=== PATIENT | male | born 1950 | race Caucasian/White ===

== ENCOUNTER 2016-11-20 13:46 | Emergency (ER) | payer MEDICARE ==
[~2016-11-20] VITALS: Ht 170.2 cm; Wt 111.6 kg
--- OUTSIDE RECORDS SUMMARY | ~2016-11-20 | XMS ---
Demographics + + + | Address | [address] | | | [place] [address] | + + + | Preferred Language | Unknown | + + + | Marital Status | Unknown | + + + | Scientologist Affiliation | Unknown | + + + | Race | Unknown | + + + | Ethnic Group | Unknown | + + + Author + + + | Author | [facility] | + + + | Organization | [facility] | + + + | Address | [address] | | | [place] [address] | + + + | Phone | | + + + Care Team Providers + + + + | Care Delivery Consultant Name | Role | Phone | + + + + Unavailable | Unavailable | + + + + PROBLEMS +---------+ + + +--------+ + + | Type | Condition | ICD9-CM | [id number] | Onset | Condition | SNOMED | | | | Code | Code | Dates | Status | Code | +---------+ + + +--------+ + + | Problem | Hyperlipid | | E78.5 | | Active | [id number] | | | emia | | | | | | +---------+ + + +--------+ + + | Problem | Ischemic | I63.9 | | | Active | [id number] | | | stroke | | | | | | +---------+ + + +--------+ + + | Problem | Paroxysmal | | I48.0 | | Active | [id number] | | | atrial | | | | | | | | fibrillati | | | | | | | | on | | | | | | +---------+ + + +--------+ + + | Problem | Hypertensi | | I10 | | Active | 10091155 | | | on | | | | | | +---------+ + + +--------+ + + | Problem | Type 2 | | E11.9 | | Active | [id number] | | | diabetes | | | | | | | | mellitus | | | | | | | | without | | | | | | | | complicati | | | | | | | | ons | | | | | | +---------+ + + +--------+ + + | 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
--- OUTSIDE RECORDS SUMMARY | ~2016-11-20 | XMS ---
Demographics + + + | Address | [address] | | | [place] [address] | + + + | Preferred Language | Unknown | + + + | Marital Status | Unknown | + + + | Jew Affiliation | Unknown | + + + | Race | Unknown | + + + | Ethnic Group | Unknown | + + + Author + + + | Author | [facility] | + + + | Organization | [facility] | + + + | Address | [address] | | | [place] [address] | + + + | Phone | | + + + Care Team Providers + + + + | Care Customer Experience Professional Name | Role | Phone | + + + + Unavailable | Unavailable | + + + + PROBLEMS +---------+ + + +--------+ + + | Type | Condition | ICD9-CM | [id number] | Onset | Condition | SNOMED | | | | Code | Code | Dates | Status | Code | +---------+ + + +--------+ + + | Problem | Hyperlipid | | E78.5 | | Active | [id number] | | | emia | | | | | | +---------+ + + +--------+ + + | Problem | Ischemic | I63.9 | | | Active | [id number] | | | stroke | | | | | | +---------+ + + +--------+ + + | Problem | Paroxysmal | | I48.0 | | Active | [id number] | | | atrial | | | | | | | | fibrillati | | | | | | | | on | | | | | | +---------+ + + +--------+ + + | Problem | Hypertensi | | I10 | | Active | 88367701 | | | on | | | | | | +---------+ + + +--------+ + + | Problem | Type 2 | | E11.9 | | Active | [id number] | | | diabetes | | | | | | | | mellitus | | | | | | | | without | | | | | | | | complicati | | | | | | | | ons | | | | | | +---------+ + + +--------+ + + | 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 | | | Active | 26415464 | | | erotic | | | | | | | | cardiovasc | | | | | | | | ular | | | | | | | | disease | | | | | | +---------+ + + +--------+ + + | Problem | Type 2 | E11.40 | | | Active | [id number] | | | diabetes | | | | | 107 | | | mellitus | | | | | | | | with | | | | | | | | diabetic | | | | | | | | neuropathy | | | | | | +---------+ + + +--------+ + + ALLERGIES + + + + +--------+ | Substance | Reaction | Event Type | Date | Status | + + + + +--------+ | Hydrochlorothia | Hyponatremia | Drug Allergy | Jul, | Active | | zide | | | | | + + + + +--------+ SOCIAL HISTORY No smoking Hx information available PLAN OF CARE + +---------+ | Activity | Details | + +---------+ +---+ | | +---+ + + + | Follow Up | 4 Weeks Reason:null | + + + VITAL SIGNS + + + + | Height | 66 in | 2016-07-31 | + + + + | Weight | 242.8 lbs | 2016-07-31 | + + + + | BMI | 39.18 kg/m2 | 2016-07-31 | + + + + | Temperature | 98.3 degrees Fahrenheit | 2016-07-31 | + + + + | Heart Rate | 57 /min | 2016-07-31 | + + + + | Blood pressure systolic | 163 mm Hg | 2016-07-31 | + + + + | Blood pressure diastolic | 92 mm Hg | 2016-07-31 | + + + + MEDICATIONS + + + + + + + +--------+ | Medicati | Instruct | Dosage | Frequenc | Start | End Date | Duration | Status | | on | ions | | y | Date | | | | + + + + + + + +--------+ | Warfarin | Orally | 1 tablet | | 27 June, | | | Active | | Sodium | Once a | | | 2017 | | | | | 5 MG | day - | | | | | | | | | BLOOD | | | | | | | | | THINNER | | | | | | | | | FOR | | | | | | | | | STROKE. | | | | | | | | | To start | | | | | | | | | from | | | | | | | | | Thursday | | | | | | | | | 06/30/16. | | | | | | | + + + + + + + +--------+ | Gabapent | Orally | 1 | 8h | | | 30 | Active | | in 400 | Three | capsule | | | | | | | MG | times a | | | | | | | | | day | | | | | | | + + + + + + + +--------+ | Metformi | Orally | 1 tab(s) | 12h | 14 Feb, | | 30 | Active | | n HCl | bid | | | 2015 | | | | | 1000 MG | | | | | | | | + + + + + + + +--------+ | Lisinopr | Orally | 1 tablet | | 24 Feb, | | 30 | Active | | il 20 MG | take hs | | | 2016 | | day(s) | | + + + + + + + +--------+ | Metoprol | | | | | | | Active | | ol | | | | | | | | | Succinat | | | | | | | | | e 100 mg | | | | | | | | + + + + + + + +--------+ | Paroxeti | | | | | | | Active | | ne HCl | | | | | | | | | 20 MG | | | | | | | | + + + + + + + +--------+ | Zoloft | Orally | 1 tablet | 24h | 22 Floyd, | | 30 | Active | | 50 MG | Once a | | | 2017 | | day(s) | | | | day | | | | | | | + + + + + + + +--------+ | Nicotine | | | | | | | Active | | 21 | | | | | | | | | MG/24HR | | | | | | | | + + + + + + + +--------+ | Aspirin | | | | | | | Active | | 81 mg | | | | | | | | + + + + + + + +--------+ | Potassiu | | TAKE 1 | | | | 30 | Active | | m | | TABLET | | | | | | | Chloride | | BY MOUTH | | | | | | | Mirella ER | | EVERY | | | | | | | 20 | | DAY | | | | | | + + + + + + + +--------+ | Trazodon | Orally | 1 tablet | 24h | | | 30 | Active | | e 150 MG | Once a | at | | | | | | | | day | bedtime | | | | | | + + + + + + + +--------+ | Amlodipi | | | | | | | Active | | ne | | | | | | | | | Besylate | | | | | | | | | 10 MG | | | | | | | | + + + + + + + +--------+ | Atorvast | | | | | | | Active | | atin | | | | | | | | | Calcium | | | | | | | | | 80 MG | | | | | | | | + + + + + + + +--------+ RESULTS No Results PROCEDURES + + + + + | Procedure | Date Ordered | Related Diagnosis | Body Site | + + + + + | Office Visit, Est | July 31, 2016 | | | | Pt., Level 3 | | | | + + + + + IMMUNIZATIONS No Known Immunizations"
--- OUTSIDE RECORDS SUMMARY | ~2016-11-20 | XMS ---
Demographics + + + | Address | [address] | | | [place] [address] | + + + | Preferred Language | Unknown | + + + | Marital Status | Unknown | + + + | Zoroastrianism Affiliation | Unknown | + + + | Race | Unknown | + + + | Ethnic Group | Unknown | + + + Author + + + | Author | [facility] | + + + | Organization | [facility] | + + + | Address | [address] | | | [place] [address] | + + + | Phone | | + + + Care Team Providers + + + + | Care Rehabilitation Manager Name | Role | Phone | + + + + Unavailable | Unavailable | + + + + PROBLEMS +---------+ + + +--------+ + + | Type | Condition | ICD9-CM | [id number] | Onset | Condition | SNOMED | | | | Code | Code | Dates | Status | Code | +---------+ + + +--------+ + + | Problem | Hyperlipid | | E78.5 | | Active | [id number] | | | emia | | | | | | +---------+ + + +--------+ + + | Problem | Ischemic | I63.9 | | | Active | [id number] | | | stroke | | | | | | +---------+ + + +--------+ + + | Problem | Paroxysmal | | I48.0 | | Active | 341423190 | | | atrial | | | | | | | | fibrillati | | | | | | | | on | | | | | | +---------+ + + +--------+ + + | Problem | Hypertensi | | I10 | | Active | 65884977 | | | on | | | | | | +---------+ + + +--------+ + + | Problem | Type 2 | | E11.9 | | Active | 231972745 | | | diabetes | | | | | | | | mellitus | | | | | | | | without | | | | | | | | complicati | | | | | | | | ons | | | | | | +---------+ + + +--------+ + + | 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
--- OUTSIDE RECORDS SUMMARY | ~2016-11-20 | XMS ---
Demographics + + + | Address | [address] | | | [place] [address] | + + + | Preferred Language | Unknown | + + + | Marital Status | Unknown | + + + | Uatsdin Affiliation | Unknown | + + + | Race | Unknown | + + + | Ethnic Group | Unknown | + + + Author + + + | Author | [facility] | + + + | Organization | [facility] | + + + | Address | [address] | | | [place] [address] | + + + | Phone | | + + + Care Team Providers + + + + | Care Claims Attorney Name | Role | Phone | + + + + Unavailable | Unavailable | + + + + PROBLEMS +---------+ + + +--------+ + + | Type | Condition | ICD9-CM | [id number] | Onset | Condition | SNOMED | | | | Code | Code | Dates | Status | Code | +---------+ + + +--------+ + + | Problem | Hyperlipid | | E78.5 | | Active | [id number] | | | emia | | | | | | +---------+ + + +--------+ + + | Problem | Ischemic | I63.9 | | | Active | [id number] | | | stroke | | | | | | +---------+ + + +--------+ + + | Problem | Paroxysmal | | I48.0 | | Active | 820444263 | | | atrial | | | | | | | | fibrillati | | | | | | | | on | | | | | | +---------+ + + +--------+ + + | Problem | Hypertensi | | I10 | | Active | 51341124 | | | on | | | | | | +---------+ + + +--------+ + + | Problem | Type 2 | | E11.9 | | Active | [id number] | | | diabetes | | | | | | | | mellitus | | | | | | | | without | | | | | | | | complicati | | | | | | | | ons | | | | | | +---------+ + + +--------+ + + | 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
--- OUTSIDE RECORDS SUMMARY | ~2016-11-20 | XMS ---
Demographics + + + | Address | [address] | | | [place] [address] | + + + | Preferred Language | Unknown | + + + | Marital Status | Unknown | + + + | Yarsani Affiliation | Unknown | + + + | Race | Unknown | + + + | Ethnic Group | Unknown | + + + Author + + + | Author | [facility] | + + + | Organization | [facility] | + + + | Address | [address] | | | [place] [address] | + + + | Phone | | + + + Care Team Providers + + + + | Care National Insurance Officer Name | Role | Phone | + + + + Unavailable | Unavailable | + + + + PROBLEMS +---------+ + + +--------+ + + | Type | Condition | ICD9-CM | [id number] | Onset | Condition | SNOMED | | | | Code | Code | Dates | Status | Code | +---------+ + + +--------+ + + | Problem | Hyperlipid | | E78.5 | | Active | [id number] | | | emia | | | | | | +---------+ + + +--------+ + + | Problem | Ischemic | I63.9 | | | Active | 819842334 | | | stroke | | | | | | +---------+ + + +--------+ + + | Problem | Paroxysmal | | I48.0 | | Active | [id number] | | | atrial | | | | | | | | fibrillati | | | | | | | | on | | | | | | +---------+ + + +--------+ + + | Problem | Hypertensi | | I10 | | Active | 08213972 | | | on | | | | | | +---------+ + + +--------+ + + | Problem | Type 2 | | E11.9 | | Active | 510334457 | | | diabetes | | | | | | | | mellitus | | | | | | | | without | | | | | | | | complicati | | | | | | | | ons | | | | | | +---------+ + + +--------+ + + | 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 | | | Active | 67080567 | | | erotic | | | | | | | | cardiovasc | | | | | | | | ular | | | | | | | | disease | | | | | | +---------+ + + +--------+ + + | Problem | Type 2 | E11.40 | | | Active | [id number] | | | diabetes | | | [...] Hydrochlorothia | Hyponatremia | Drug Allergy | Sep, | Active | | zide | | | | | + + + + +--------+ SOCIAL HISTORY No smoking Hx information available PLAN OF CARE + +---------+ | Activity | Details | + +---------+ +---+ | | +---+ + + + | Follow Up | 3 Months Reason:null | + + + VITAL SIGNS + + + + | Height | 66 in | 2016-09-25 | + + + + | Weight | 238.8 lbs | 2016-09-25 | + + + + | BMI | 38.54 kg/m2 | 2016-09-25 | + + + + | Temperature | 98.2 degrees Fahrenheit | 2016-09-25 | + + + + | Heart Rate | 61 /min | 2016-09-25 | + + + + | Blood pressure systolic | 133 mm Hg | 2016-09-25 | + + + + | Blood pressure diastolic | 71 mm Hg | 2016-09-25 | + + + + MEDICATIONS + [...] Lisinopr | Orally | 1 tablet | 24h | 24 Stevan, | | | Active | | il 40 MG | Once a | | | 2017 | | | | | | day [...] tablet | | 27 June, | | 30 | Active | | Sodium | Once [...] | | | | | | | 06/30/. | | | | | | | + + + + + + + +--------+ | Aspirin | Orally | 1 tablet | 24h | | | | Active | | 81 MG | Once a | | | | | | [...] + + + + + +--------+ RESULTS + +--------+ + + | Name | Result | Date | Reference Range | + +--------+ + + | Glucose, Finger | | 2016-09-25 | | | Stick (IH) | | | | + +--------+ + + PROCEDURES + + + + + | Procedure | Date Ordered | Related Diagnosis | Body Site | + + + + + | REAGENT STRIP/BLOOD | Sep 25, 2016 | | | | GLUCOSE | | | | + + + + + IMMUNIZATIONS No Known Immunizations"
[~2016-11-20 13:46] MED LIST: AMLODIPINE BESY10 MG PO; ASPIRIN EC81 MG PO; ATENOLOL50 MG PO; CHLORTHALIDONE25 MG PO; GABAPENTIN400 MG PO; GLUCOPHAGE1000 MG PO; HYDRALAZINE HCL25 MG PO; IBUPROFEN200 MG PO; LIPITOR40 MG PO; LIPITOR80 MG PO; LISINOPRIL20 MG PO; LISINOPRIL40 MG PO; MELOXICAM15 MG PO; METOPROLOL SUC100 MG PO; NICOTINE PATCH1 EAC1 TD; PAROXETINE HCL20 MG PO; POTASSIUM CHLO20 ME1 PO; SERTRALINE HCL50 MG PO; SIMVASTATIN80 MG PO; TRAZODONE HCL150 MG PO; VENTOLIN HFA18 GM INH; WARFARIN SODIUM5 MG PO
[2016-11-20] MEDS ORDERED: DILANTIN100 MG PO (16:53)
--- NOTE | 2016-11-20 19:17 | EKG ---
[facility] [address] [facility] [place] [address] Signed Normal sinus rhythm Left anterior fascicular block Prolonged QT Abnormal ECG When compared with ECG of 17-JUN-2016 17:22, Sinus rhythm has replaced Atrial fibrillation Nonspecific T wave abnormality no longer evident in Inferior leads T wave inversion no longer evident in Anterior leads QT has shortened Confirmed by JORGE WINCHESTER MD ([id number]) on 11/20/2016 7:17:00 PM Electronically Signed By: JORGE WINCHESTER MD 11/20/16 1917 PATIENT NAME: MAGALI OCHOA Electrocardiogram DATE OF : 52 PHYSICIAN: JORGE WINCHESTER MD REPORT #: [id number] REPORT IS CONFIDENTIAL AND NOT TO BE RELEASED WITHOUT AUTHORIZATION
[2016-11-25] MEDS ORDERED: PHENYTOIN SODI100 MG PO (13:54)
== END 2016-11-20 19:27 | disposition home or self-care (01) ==
LOC: ED 13:46
DX: G40.909 Epilepsy, unspecified, not intractable, without status epilepticus (principal); R41.82 Altered mental status, unspecified; E11.9 Type 2 diabetes mellitus without complications; I10 Essential (primary) hypertension; F17.200 Nicotine dependence, unspecified, uncomplicated; Z90.49 Acquired absence of other specified parts of digestive tract; Z88.8 Allergy status to other drugs, medicaments and biological substances; Z79.01 Long term (current) use of anticoagulants; Z79.82 Long term (current) use of aspirin; Z79.899 Other long term (current) drug therapy; Z79.84 Long term (current) use of oral hypoglycemic drugs
CPT/HCPCS: 70450; 71010; 80053; 81001; 84484; 85025; 85610; 85730; 93005; 93010; 96365; 99284; G0480; J1165; J7050

== ENCOUNTER 2017-03-05 03:37 | Emergency (ER) | payer MEDICARE ==
[~2017-03-05] VITALS: Ht 170.2 cm; Wt 90.9 kg
[~2017-03-05 03:37] MED LIST changes: +DILANTIN100 MG PO; +PHENYTOIN SODI100 MG PO
== END 2017-03-05 05:27 | disposition home or self-care (01) ==
LOC: ED 03:37
DX: G40.409 Other generalized epilepsy and epileptic syndromes, not intractable, without status epilepticus (principal); E11.9 Type 2 diabetes mellitus without complications; I10 Essential (primary) hypertension; F17.200 Nicotine dependence, unspecified, uncomplicated; Z86.73 Personal history of transient ischemic attack (TIA), and cerebral infarction without residual deficits; Z96.653 Presence of artificial knee joint, bilateral; Z90.49 Acquired absence of other specified parts of digestive tract; Z88.8 Allergy status to other drugs, medicaments and biological substances; Z79.84 Long term (current) use of oral hypoglycemic drugs; Z79.899 Other long term (current) drug therapy; Z79.01 Long term (current) use of anticoagulants
CPT/HCPCS: 80053; 80185; 85025; 85610; 85730; 99284